=== PATIENT | female | born 1990 ===

== ENCOUNTER → 2018-03-01 | Outpatient (CLI) | payer OTHER ==
--- NOTE | 2018-03-01 14:40 | DIAGNOSTIC IMAGING REPORT ---
LEFT FOOT 3 VIEWS HISTORY: LEFT FOOT PAIN COMPARISON: None. FINDINGS: Slightly distracted fracture at the base of the fifth metatarsal. This demonstrates up to 2 mm of distraction. This does not extend to the intertarsal space. Therefore, this is consistent with a pseudo-Delatorre fracture. Some of the fracture edges appears to be corticated. Therefore, this raises the possibility of a subacute fracture. Mild lateral soft tissue swelling within the midfoot. No radiopaque foreign bodies. IMPRESSION: Acute to subacute slightly distracted fracture at the base of the fifth metatarsal. Electronically signed by: Octavio Og M.D. 03/01/2018 2:38 PM Dictated Date/Time: 03/01/2018 2:36 PM
== END | disposition home or self-care (01) ==
LOC: C.RDSM 14:22
PROVIDERS: ATTEND Family Medicine
DX: M79.672 Pain in left foot (principal)